=== PATIENT | female | born 1980 | race Hispanic/Latino ===

== ENCOUNTER → 2025-08-10 | Outpatient (CLI) | payer OTHER ==
--- NOTE | 2025-08-11 09:15 | HMCIMG ---
EXAM: CT Cardiac calcium scoring. CLINICAL HISTORY: HEART SAVER PROMOTIONAL, Ca score. TECHNIQUE: Thin collimated axial CT cardiac images were obtained. A CT scan is done according to ALARA (As Low As Reasonably Achievable). CONTRAST: None. COMPARISON: None provided. FINDINGS: Calcium Score: VESSEL Calcium score Volume mm3 Equi. Mass/mg LM 0 0 0 LAD 0 0 0 LCX 0 0 0 RCA 0 0 0 Total 0 0 0 IMPRESSION: The total calcium score is 0, and the percentile is 0th, which means 100 percent of females aged 45 to 50 will have a higher calcium score than you. Few conglomerate pulmonary nodules in the left lung base, which need clinical correlation to rule out infection versus microaspiration. /[place]
== END | disposition home or self-care (01) ==
LOC: RAH 14:52
PROVIDERS: ATTEND Family Medicine
DX: Z13.6 Encounter for screening for cardiovascular disorders (principal)
CPT/HCPCS: 75571